=== PATIENT | male | born 1970 | race Two or more races ===

== ENCOUNTER 2019-05-24 22:41 | Emergency (ER) | payer BC ==
[~2019-05-24] VITALS: Ht 172.7 cm; Wt 72.6 kg
[2019-05-24 22:58] VITALS: BP 144/89
--- NOTE | 2019-05-24 22:58 | NUR ---
ED Nurse Note: Patient walked in to ER due to congestion, cough and bodyache that was started last and vomiting x2 and dizziness that was started today. As per patient, he took otc medication for cough and congestion. Has medical hx of HTN and is not taking any medication. Alert and oriented, breathing even and unlabored. Afebrile. VSS.
[2019-05-25] MEDS ORDERED: ONDANSETRON ODT4 MG BC (00:42)
[2019-05-25 00:45] VITALS: BP 138/72
[2019-05-25 00:48] VITALS: BP 138/72
--- NOTE | 2019-05-25 00:48 | NUR ---
ED DC Note: Pt cleared by ERMD for discharge. DC instructions/prescription was given and explained to pt and verbalized understanding of teachings. All medical deviecs such as ID band and IV line removed without complication. Pt is AAO x4, ambulatory and left with all personal belongings.
--- NOTE | 2019-05-25 02:10 | Emergency Room Report ---
History of Present Illness General Chief Complaint: Flu Like Symptoms Source: Patient Present Illness HPI 49-year-old male presents ED for evaluation. Complaining of sore throat and body aches and cough for the last 3 days. Cough is dry. Pain is dull, 6 out of 10, nonradiating. Feels dizzy with vomiting twice today. Afebrile in triage. Denies recent travel or recent antibiotic use. Vaccinations up-to- date. No other aggravating relieving factors. Denies any other associated symptoms Allergies: Coded Allergies: No Known Allergies (Unverified , 05/24/19) Patient History Past Medical History: none Past Surgical History: none Pertinent Family History: none Social History: Denies: smoking, alcohol use, drug use Immunizations: UTD Reviewed Nursing Documentation: PMH: Agreed; PSxH: Agreed Nursing Documentation-PMH Past Medical History: No Stated History Review of Systems All Other Systems: negative except mentioned in HPI Physical Exam Vital Signs Date Time Temp Pulse Resp B/P (MAP) Pulse Ox O2 Delivery O2 Flow Rate FiO2 05/24/19 22:54 98.1 68 18 144/89 (107) 98 Room Air Sp02 EP Interpretation: reviewed, normal General Appearance: no apparent distress, alert, GCS 15, non-toxic Head: normocephalic, atraumatic Eyes: bilateral eye normal inspection, bilateral eye PERRL ENT: hearing grossly normal, normal pharynx, no angioedema, normal voice Neck: full range of motion, supple/symm/no masses Respiratory: chest non-tender, lungs clear, normal breath sounds, speaking full sentences Cardiovascular #1: regular rate, rhythm, no edema Cardiovascular #2: 2+ carotid (R), 2+ carotid (L), 2+ radial (R), 2+ radial (L) , 2+ dorsalis pedis (R), 2+ dorsalis pedis (L) Gastrointestinal: normal bowel sounds, non tender, soft, non-distended, no guarding, no rebound Rectal: deferred Genitourinary: normal inspection, no CVA tenderness Musculoskeletal: back normal, gait/station normal, normal range of motion, non- tender Neurologic: alert, oriented x3, responsive, motor strength/tone normal, sensory intact, speech normal Psychiatric: judgement/insight normal, memory normal, mood/affect normal, no suicidal/homicidal ideation Reflexes: 3+ bicep (R), 3+ bicep (L), 3+ tricep (R), 3+ tricep (L), 3+ knee (R) , 3+ knee (L) Lymphatic: no adenopathy Medical Decision Making Diagnostic Impression: Primary Impression: Upper respiratory infection Qualified Codes: J06.9 - Acute upper respiratory infection, unspecified ER Course Hospital Course 49-year-old male presents to ED complaining of cough, runny nose with bodyaches Differential diagnoses include: URI, pharyngitis, otitis media, asthma Clinical course Patient placed on stretcher. After initial history, physical exam reveals a young male in no acute distress. Bilateral TM unremarkable. No pharyngeal erythema. No tonsillar exudates. No lymphadenopathy. lungs clear. abdomen soft. vitals stable. Good capillary refill. I offered IV fluids and Zofran which patient accepted. Patient states he feels better after IV hydration. Discussed findings with patient. Safe for discharge for close outpatient follow -up. Diagnosis - URI Stable and discharged home with Rx zofran. Instructed to followup with PMD. Return to ED if symptoms recur or worsen Last Vital Signs Date Time Temp Pulse Resp B/P (MAP) Pulse Ox O2 Delivery O2 Flow Rate FiO2 05/25/19 00:48 98.2 77 19 138/72 98 Room Air Status: improved Disposition: HOME, SELF-CARE Condition: Stable Scripts Ondansetron Odt* (ZOFRAN ODT*) 4 Mg Tab.rapdis 4 MG BC EVERY 6 HOURS PRN for Nausea & Vomiting, #20 TAB 0 Refills Prov: Sixto Plummer MD 05/25/19 Referrals: RAUL BENITEZ (PCP) Patient Instructions: Upper Respiratory Infection, Adult, [id number] Additional Instructions: take multisymptom OTC medication such as dayquil/nyquil, tylenol cold and flu etc. fluids/rest. followup with your PMD Sixto Plummer MD May 25, 2019 02:10
== END 2019-05-25 00:48 | disposition home or self-care (01) ==
LOC: EMR 05-25 00:30
DX: J06.9 Acute upper respiratory infection, unspecified (principal)
CPT/HCPCS: 96361; 96374; 99284; J2405